=== PATIENT | male | born 1980 | race Caucasian/White ===

== ENCOUNTER 2017-07-06 09:07 | Emergency (ER) | payer BC ==
[~2017-07-06] VITALS: Ht 182.9 cm; Wt 104.1 kg
[~2017-07-06 09:07] MED LIST: AZULFIDINE500 MG/TAB PO; CELEXA 20MG20 MG/TAB PO; CYCLOBENZAPRINE10 MG PO; DEPAKOTE500 M1 PO; DEPAKOTE500 M2 PO; DOXYCYCLINE 10100 MG PO; IBU-2200 MG PO; MIDODRINE HCL10 MG PO; MIDRIN 325 MG-11 CAP PO; PENTASA PO; PENTASA500 MG PO; PERCOCET 325 MG1 TA2 PO; PREDNISONE 5MG5 MG PO; RESTORIL15 MG PO; RYBIX ODT50 MG PO; TAMIFLU 75MG75 MG PO; TOPAMAX 100MG100 M1 PO; TOPAMAX 25MG25 M1 PO; ULTRAM 50MG TAB50 MG PO; ZOFRAN4 M1 PO
[2017-07-06 09:15] VITALS: TEMP 98.2
[2017-07-06] MEDS ORDERED: ULTRAM 50MG TAB50 MG PO (09:21)
[2017-07-06 10:12] LABS: BASO % 0.7 % (0.0-2.0); EOS # 0.1 (0.0-0.7); GRAN # 3.1 (1.4-6.5); GRAN % 51.7 % (42.2-75.2); HEMATOCRIT 47.2 % (42.0-52.0); LYMPH # 2.1 (1.2-3.4); LYMPH % 35.8 % (20.0-51.0); MEAN CELL VOLUME 97 fl (80.0-100.0); MEAN CORPUSCULAR HEMOGLOBIN 33 pg (27.0-31.0); MEAN CORPUSCULAR HGB CONC 34 g/dl (33.0-37.0); MEAN PLATELET VOLUME 10.8 fl (7.4-10.4); MONO # 0.6 (0.1-0.6); MONO % 9.6 % (1.7-9.3); PLATELET COUNT 295 K/mm3 (130-400); RED BLOOD COUNT 4.88 M/mm3 (4.20-5.60); REDCELL DISTRIBUTION WIDTH-CV 12.2 % (11.5-14.5); WHITE BLOOD COUNT 5.9 K/mm3 (4.8-10.8)
[2017-07-06 10:20] LABS: PH 6 (5-8); SQUAMOUS EPITHELIAL 0-2 /hpf; URINE APPEARANCE Clear; URINE BACTERIA None Seen /hpf; URINE BILIRUBIN Negative (NEGATIVE); URINE BLOOD Negative (NEGATIVE); URINE COLOR Yellow; URINE GLUCOSE Negative (NEGATIVE); URINE KETONE Negative (NEGATIVE); URINE RBC 0-2 /hpf; URINE UROBILINOGEN Negative (NEGATIVE); URINE WBC 0-2 /hpf
[2017-07-06 10:27] LABS: ADJUSTED CALCIUM 9.1 mg/dL (8.4-10.2); ALANINE AMINOTRANSFERASE 79 U/L (21-72); ALBUMIN 4.7 gm/dL (3.5-5.0); ALKALINE PHOSPHATASE 54 U/L (50-136); ANION GAP 14 mmol/L (7-16); BILIRUBIN,TOTAL 0.9 mg/dL (0.0-1.0); BLOOD UREA NITROGEN 20 mg/dL (9-20); CALCIUM 9.7 mg/dL (8.4-10.2); CARBON DIOXIDE 27 mmol/L (22-30); CHLORIDE 105 mmol/L (98-107); CREATININE, serum 0.85 mg/dL (0.66-1.25); GLUCOSE 94 mg/dL (74-106); LIPASE 40 U/L (23-300); POTASSIUM 4.1 mmol/L (3.4-5.0); SODIUM 146 mmol/L (137-145)
[2017-07-06 10:30] LABS: C-REACTIVE PROTEIN < 0.5 mg/dL (0.0-0.9)
[2017-07-06 10:36] LABS: ERYTHROCYTE SEDIMENTATION RATE 2 mm/hr (0-15)
[2017-07-06] MEDS ORDERED: ENTOCORT EC3 MG PO (13:02)
[2017-07-06 13:18] VITALS: BP 131/90; PULSE 59
== END 2017-07-06 13:20 | disposition home or self-care (01) ==
LOC: COL.ER 09:07
PROVIDERS: Nurse Practitioner
DX: K50.90 Crohn's disease, unspecified, without complications (principal); R55 Syncope and collapse; F32.9 Major depressive disorder, single episode, unspecified
CPT/HCPCS: J7030

== ENCOUNTER 2018-12-15 06:08 | Day surgery (SDC) | payer OTHER ==
[~2018-12-15] VITALS: Ht 185.4 cm; Wt 105.5 kg
[~2018-12-15 06:08] MED LIST changes: +ENTOCORT EC3 MG PO
[2018-12-15 06:42] VITALS: BP 137/90; PULSE 75; TEMP 97.7
--- NOTE | 2018-12-15 06:53 | NUR ---
TO RM AT 0622- CALL LIGHT IN REACH JACKIE AT BEDSIDE.
[2018-12-15 08:10] VITALS: BP 136/98; PULSE 92; TEMP 97.6
--- NOTE | 2018-12-15 08:10 | NUR ---
Pt arrives back to room following endo procedure. Pt drowsy but answers all questions appropriately. Pt ambulates from cart to recliner with RN assist. Monitors on and alarms set. Call light within reach. Report received from MICHAEL Wu. Pt requesting coffee, water, and applesauce. Family present in room. Pt voices no complaints of pain or nausea.
[2018-12-15 08:15] VITALS: BP 149/104; PULSE 90
[2018-12-15 08:30] VITALS: BP 125/102; PULSE 95
--- NOTE | 2018-12-15 08:30 | NUR ---
Pt taking food and drink well. No complaints except being drowsy, which pt states this is getting better little by little.
[2018-12-15 08:39] VITALS: BP 134/94; PULSE 88
--- NOTE | 2018-12-15 08:39 | NUR ---
Discharge instructions given to patient and . Handed to them are discharge instructions, diagnosis information, and a discharge med sheet. All questions answered to their satisfaction.
[2018-12-15 08:45] VITALS: BP 132/82; PULSE 85
--- NOTE | 2018-12-15 08:55 | NUR ---
Pt transported out of hospital via wheelchair and Emily assist to private vehicle driven by .
== END 2018-12-15 08:55 | disposition home or self-care (01) ==
LOC: SDCO 06:08
DX: Z12.11 Encounter for screening for malignant neoplasm of colon (principal); K50.80 Crohn's disease of both small and large intestine without complications; Z79.899 Other long term (current) drug therapy
CPT/HCPCS: OP; J2175; J2250; J2405; J7030

== ENCOUNTER 2020-10-06 15:19 | Outpatient (CLI) | payer OTHER ==
[~2020-10-06] VITALS: Ht 185.4 cm; Wt 106.9 kg
[2020-10-06 17:56] VITALS: BP 162/86; PULSE 101; TEMP 98.1
== END 2020-10-06 18:14 | disposition home or self-care (01) ==
LOC: EUO 15:19
DX: G43.009 Migraine without aura, not intractable, without status migrainosus (principal)
CPT/HCPCS: J0780; J1200; J1885; J3475; J7040

== ENCOUNTER 2020-12-11 10:58 | Emergency (ER) | payer BC ==
[~2020-12-11] VITALS: Ht 182.9 cm; Wt 106.8 kg
[2020-12-11 14:11] VITALS: BP 116/70; PULSE 72; TEMP 97.9
== END 2020-12-11 14:05 | disposition home or self-care (01) ==
LOC: COL.ER 10:58
DX: G43.909 Migraine, unspecified, not intractable, without status migrainosus (principal)
CPT/HCPCS: J0780; J1200; J1885; J3475; J7030

== ENCOUNTER 2024-04-21 23:51 | Emergency (ER) | payer MEDICARE ==
[~2024-04-21] VITALS: Ht 180.3 cm; Wt 90.9 kg
[2024-04-21 23:57] VITALS: TEMP 97.5
[2024-04-22 00:32] LABS: PROTHROMBIN TIME 10.4 SECONDS (9.7-12.8)
[2024-04-22 00:34] LABS: PARTIAL THROMBOPLASTIN TIME 21.7 SECONDS (26.0-37.0)
[2024-04-22 00:37] LABS: ALANINE AMINOTRANSFERASE 26 U/L (0-55); ALBUMIN 4.5 g/dL (3.5-5.0); ALKALINE PHOSPHATASE 49 U/L (40-150); ANION GAP 9 mmol/L (7-16); AST,SGOT 29 U/L (5-34); BILIRUBIN,TOTAL 0.4 mg/dL (0.2-1.2); BLOOD UREA NITROGEN 17 mg/dL (9-21); CHLORIDE 105 mEq/L (98-107); CREATININE, serum 0.79 mg/dL (0.72-1.25); GLUCOSE 114 mg/dL (70-99); POTASSIUM 3.6 mEq/L (3.5-4.5); SODIUM 140 mEq/L (136-145); TOTAL PROTEIN 7.4 g/dl (6.2-8.1)
[2024-04-22 01:28] LABS: BASO % 0.6 % (0.0-2.0); EOS # 0.1 K/mm3 (0.0-0.7); EOS % 1.1 % (0.0-4.0); GRAN # 3.7 K/mm3 (1.4-6.5); GRAN % 56.3 % (42.2-75.2); HEMATOCRIT 38.7 % (42.0-52.0); HEMOGLOBIN 13.2 g/dl (13.5-18.0); MEAN CELL VOLUME 95 fl (80.0-100.0); MEAN CORPUSCULAR HEMOGLOBIN 32 pg (27-31); MEAN CORPUSCULAR HGB CONC 34 g/dl (33.0-37.0); MEAN PLATELET VOLUME 10.4 fl (7.4-10.4); MONO # 0.8 K/mm3 (0.1-0.6); MONO % 11.8 % (1.7-9.3); PLATELET COUNT 299 K/mm3 (130-400); RED BLOOD COUNT 4.09 M/mm3 (4.20-5.60); REDCELL DISTRIBUTION WIDTH-CV 12.5 % (11.5-14.5)
[2024-04-22] MEDS ORDERED: NS 1,000 ML IV ONE (02:00)
[2024-04-22] MEDS ORDERED: dexAMETHasone 10 MG/ML VIAL IV ONE (02:00)
[2024-04-22] MEDS ORDERED: diphenhydrAMINE 50 MG/ML 1 ML VIAL IV ONE (02:00)
[2024-04-22] MEDS ORDERED: Ketorolac 30 MG/ML VIAL IV ONE (02:00)
[2024-04-22 03:39] VITALS: BP 134/87; PULSE 78
[2024-04-22 04:09] LABS: ALCOHOL(ethanol),MEDICAL < 10 mg/dL (0-10)
== END 2024-04-22 03:45 | disposition home or self-care (01) ==
LOC: COL.ER 23:51
PROVIDERS: Emergency Medicine
DX: G43.909 Migraine, unspecified, not intractable, without status migrainosus (principal); S09.90XA Unspecified injury of head, initial encounter; S00.93XA Contusion of unspecified part of head, initial encounter; W19.XXXA Unspecified fall, initial encounter; Y92.009 Unspecified place in unspecified non-institutional (private) residence as the place of occurrence of the external cause
CPT/HCPCS: J1100; J1200; J1885; J2765; J3475; J7030